=== PATIENT | female | born 1965 ===

== ENCOUNTER 2017-11-30 06:49 | Emergency (ER) | payer OTHER ==
[~2017-11-30] VITALS: Ht 165.1 cm; Wt 68.0 kg
[~2017-11-30 06:49] MED LIST: ACIDOPHILUS1 EAC3 PO
== END 2017-11-30 12:10 | disposition home or self-care (01) ==
LOC: ER 06:49
DX: K52.9 Noninfective gastroenteritis and colitis, unspecified (principal)

== ENCOUNTER 2018-03-09 11:44 | Outpatient (CLI) | payer OTHER | END 2018-03-09 11:56 | disposition home or self-care (01) | LOC: MAMO-SONO 11:44 | DX: Z12.31 Encounter for screening mammogram for malignant neoplasm of breast (principal); N60.89 Other benign mammary dysplasias of unspecified breast ==

== ENCOUNTER 2018-05-26 07:31 | Emergency (ER) | payer OTHER ==
[~2018-05-26] VITALS: Ht 165.1 cm; Wt 68.0 kg
[2018-05-26] MEDS ORDERED: OSEL75CA PO (11:02)
[2018-05-26] MEDS ORDERED: TUSSI PRES-B L120 M1 PO (11:02)
== END 2018-05-26 11:28 | disposition home or self-care (01) ==
LOC: ER 07:31
DX: B34.9 Viral infection, unspecified (principal)

== ENCOUNTER 2019-06-06 10:16 | Outpatient (CLI) | payer OTHER ==
[~2019-06-06 10:16] MED LIST changes: +OSEL75CA PO; +TUSSI PRES-B L120 M1 PO
== END 2019-06-06 11:00 | disposition home or self-care (01) ==
LOC: RX STUDY 10:16
DX: R13.19 Other dysphagia (principal)

== ENCOUNTER 2020-03-07 12:45 | Outpatient (CLI) | payer OTHER | END 2020-03-07 13:00 | disposition home or self-care (01) | LOC: MAMO-SONO 12:45 | DX: Z12.31 Encounter for screening mammogram for malignant neoplasm of breast (principal); N64.59 Other signs and symptoms in breast ==

== ENCOUNTER 2021-06-11 00:28 | Emergency (ER) | payer OTHER ==
[~2021-06-11] VITALS: Ht 165.1 cm; Wt 70.8 kg
[2021-06-11] MEDS ORDERED: PEPCID AC20 MG (01:36)
[2021-06-11] MEDS ORDERED: LEVSIN0.125 MG PO (05:05)
[2021-06-11] MEDS ORDERED: PEPCID AC20 MG PO (05:05)
[2021-06-11] MEDS ORDERED: INTESTINEX680 M2 PO (05:05)
[2021-06-11] MEDS ORDERED: PHENERGAN25 MG PO (05:07)
== END 2021-06-11 05:10 | disposition home or self-care (01) ==
LOC: ER 00:28
DX: K52.89 Other specified noninfective gastroenteritis and colitis (principal)